=== PATIENT | male | born 1955 | race Caucasian/White ===

== ENCOUNTER 2023-04-10 10:32 | Emergency (ER) | payer OTHER ==
[~2023-04-10] VITALS: Ht 167.6 cm; Wt 54.4 kg
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
[2023-04-10 10:57] VITALS: TEMP 97
--- NOTE | 2023-04-10 11:00 | NUR ---
SEEN BY DR. AGUIRRE
--- NOTE | 2023-04-10 11:30 | NUR ---
INSERTED ANGO CATHETER G 20 ON LT ARM BLOOD DROW AND SENT TO LAB
[2023-04-10 11:58] LABS: BASOPHILS % (AUTO) 0.2 % (0.0-2.0); EOSINOPHILS % (AUTO) 0.3 % (0.0-6.0); HEMATOCRIT 40 % (39-51); HEMOGLOBIN 13.9 g/dL (13.5-17.5); LYMPHOCYTES # (AUTO) 1.1 K/uL (0.8-4.8); LYMPHOCYTES % (AUTO) 13.2 % (20.0-44.0); MEAN CORPUSCULAR HGB CONC 35 g/dl (31.0-36.0); MEAN CORPUSCULAR VOLUME 96 fL (80-96); MONOCYTES # (AUTO) 0.8 K/uL (0.1-1.30); MONOCYTES % (AUTO) 9.9 % (2.0-12.0); NEUTROPHILS # (AUTO) 6.4 K/uL (1.8-8.9); NEUTROPHILS % (AUTO) 76.4 % (43.0-81.0); PLATELET COUNT (AUTO) 226 K/uL (150-450); RED BLOOD CELL COUNT(AUTO) 4.13 MIL/uL (4.5-6.0); WHITE BLOOD COUNT (AUTO) 8.3 K/uL (4.3-11.0)
--- NOTE | 2023-04-10 12:00 | NUR ---
CERVICAL COLLO APPLED BY DR. AGUIRRE
[2023-04-10 12:16] LABS: ALANINE AMINOTRANSFERASE 20 U/L (12-78); ALBUMIN 3.3 g/dL (3.4-5.0); ALKALINE PHOSPHATASE 63 U/L (46-116); ASPARTATE AMINOTRANSFERASE 21 U/L (15-37); BILIRUBIN,DIRECT 0.2 mg/dL (0.0-0.2); BILIRUBIN,TOTAL 0.8 mg/dL (0.2-1.0); CALCIUM, SERUM 9.3 mg/dL (8.5-10.1); CARBON DIOXIDE 26 mmol/L (21-32); CHLORIDE 92 mmol/L (98-107); GLUCOSE 133 mg/dL (74-106); POTASSIUM 3.2 mmol/L (3.5-5.1); SODIUM SERUM 130 mmol/L (136-145); TOTAL PROTEIN, SERUM 7.5 g/dL (6.4-8.2); UREA NITROGEN, BLOOD 14 mg/dL (7-18)
[2023-04-10] MEDS ORDERED: LEVETIRACETAM (500MG) 1,000 MG in IV NS 0.9% 100 ML IV STA (12:58)
--- NOTE | 2023-04-10 12:58 | NUR ---
PT ACCEPTED TO [facility] PER DR JUNE
--- NOTE | 2023-04-10 12:58 | NUR ---
DR JUNE SPEAKING WITH DR AGUIRRE
--- NOTE | 2023-04-10 12:58 | NUR ---
DR JUNE NEUROSURGERY - [facility] NOTIFIED
--- NOTE | 2023-04-10 12:59 | NUR ---
[facility] WILL ARRANGE TRANSPORTATION AND CALL WITH MORE INFORMATION
--- NOTE | 2023-04-10 13:16 | NUR ---
[facility] CALLED FOR [facility]AGAE
--- NOTE | 2023-04-10 13:23 | NUR ---
PT POSTIVE FOR LEFT SUBDURAL HEMATOMA
--- NOTE | 2023-04-10 14:02 | NUR ---
PT NOTEFED AND AWARE PLAN OF CARE TRANSFER TO [facility] FOR ROM AND AMBLANCE
--- NOTE | 2023-04-10 16:00 | NUR ---
amada granados sent to lab
--- NOTE | 2023-04-10 16:02 | NUR ---
PER [facility] [place] - ACCEPTED ROOM 4415-2, REPORT TO BE GIVEN TO [phone]...AWAITING CALL BACK FOR TRANSPORTATION ETA.
--- NOTE | 2023-04-10 16:45 | NUR ---
ND COMFORTALE NNO WEEKNESS OR PAIN NO ACTVE SZ
--- NOTE | 2023-04-10 16:56 | NUR ---
HAND OFF SONA. Caro RN TO ROOM 7895-2 STABLE VS NO PAIN
[2023-04-10 18:24] VITALS: BP 138/82; O2SAT 98
--- NOTE | 2023-04-10 18:45 | NUR ---
TRANSFER TO [facility] STABLE VS
== END 2023-04-10 19:42 | disposition short-term general hospital (02) ==
LOC: ER 10:40
DX: S06.5XAA Traumatic subdural hemorrhage with loss of consciousness status unknown, initial encounter (principal); S00.83XA Contusion of other part of head, initial encounter; I10 Essential (primary) hypertension; E11.9 Type 2 diabetes mellitus without complications; Z86.73 Personal history of transient ischemic attack (TIA), and cerebral infarction without residual deficits; Z88.0 Allergy status to penicillin; Z60.2 Problems related to living alone; Z20.822 Contact with and (suspected) exposure to COVID-19; W01.0XXA Fall on same level from slipping, tripping and stumbling without subsequent striking against object, initial encounter; Y93.89 Activity, other specified; Y92.89 Other specified places as the place of occurrence of the external cause; Y99.8 Other external cause status
CPT/HCPCS: 99291; 72125; 96365; 87426; 93005; 71045; 70450; 85025; 80048; 80076; 36415; 84484; 85730; 86850; 83880; 82962; J7030 ×2; J1953; C9803